=== PATIENT | female | born 1995 | race Two or more races ===

== ENCOUNTER 2020-09-18 20:50 | Emergency (ER) | payer BC, OTHER ==
[~2020-09-18] VITALS: Ht 165.1 cm; Wt 70.3 kg
[2020-09-18] MEDS ORDERED: AZIT250T PO (21:09)
[2020-09-18] MEDS ORDERED: HYDROCODONE/APAP 10-325 MG TABLET PO ONE (21:15)
[2020-09-18] MEDS ORDERED: AZITHROMYCIN 250 MG TABLET PO ONE (21:15)
[2020-09-18] MEDS ORDERED: AZITHROMYCIN 250 MG TABLET ONE (21:16)
[2020-09-18] MEDS ORDERED: HYDROCODONE/APAP 10-325 MG TABLET ONE (21:21)
== END 2020-09-18 22:20 | disposition home or self-care (01) ==
LOC: ER 20:50
DX: J02.9 Acute pharyngitis, unspecified (principal)
CPT/HCPCS: A4663; Q0144

== ENCOUNTER 2022-01-06 19:32 | Emergency (ER) | payer SELFPAY ==
[~2022-01-06] VITALS: Ht 165.1 cm; Wt 68.0 kg
[~2022-01-06 19:32] MED LIST: AZIT250T PO
--- NOTE | 2022-01-06 23:37 | NUR ---
PLACED IN ROOM 4B AT THIS TIME.
[2022-01-07] MEDS ORDERED: KETOROLAC TROMETHAMINE 30 MG INJ IVP ONE (00:15)
[2022-01-07] MEDS ORDERED: IV NS 1000 ML 1,000 ML IV ONE (00:15)
[2022-01-07] MEDS ORDERED: METOCLOPRAMIDE HCL 10 MG/2 ML VIAL IV ONE (00:15)
[2022-01-07] MEDS ORDERED: diphenhydrAMINE 50 MG/1 ML VIAL IV ONE (00:15)
[2022-01-07 00:20] LABS: HEMATOCRIT 39.4 % (31.2-41.9); MEAN CORPUSCULAR HEMOGLOBIN 33.3 uug (24.7-32.8); MEAN CORPUSCULAR VOLUME 96.8 fL (75.5-95.3); PLATELET COUNT (AUTO) 229 K/uL (179-408)
[2022-01-07] MEDS ORDERED: diphenhydrAMINE 50 MG/1 ML VIAL ONE (00:20)
[2022-01-07] MEDS ORDERED: KETOROLAC TROMETHAMINE 30 MG INJ ONE (00:20)
[2022-01-07] MEDS ORDERED: METOCLOPRAMIDE HCL 10 MG/2 ML VIAL ONE (00:20)
[2022-01-07 00:26] LABS: CREATININE 0.9 mg/dL (0.6-1.3); POTASSIUM 3.5 mmol/L (3.5-5.1)
[2022-01-07 00:32] LABS: BILIRUBIN,DIRECT 0.1 mg/dL (0.0-0.2); BILIRUBIN,TOTAL 0.5 mg/dL (0.2-1.0)
[2022-01-07 00:48] LABS: *MONOTEST NEGATIVE (NEGATIVE)
[2022-01-07] MEDS ORDERED: PROC10TA29 PO (01:15)
[2022-01-07] MEDS ORDERED: OXYC-128 PO (01:15)
[2022-01-07] MEDS ORDERED: SUMA100T16 PO (01:15)
[2022-01-07] MEDS ORDERED: NAPR-1164 PO (01:15)
--- NOTE | 2022-01-07 01:30 | NUR ---
Patient discharged to home in stable condition. Written and verbal after care instructions given. Patient verbalizes understanding of instructions. Stressed follow up or return to ER for worsening s/s. Patient is a/ox4, NAD noted. Patient is able to walk with steady gait
[2022-01-07 02:00] VITALS: BP 118/67
== END 2022-01-07 01:30 | disposition home or self-care (01) ==
LOC: ER 19:32
DX: B34.9 Viral infection, unspecified (principal); G43.909 Migraine, unspecified, not intractable, without status migrainosus; Z20.822 Contact with and (suspected) exposure to COVID-19
CPT/HCPCS: 87426; 86403 ×2; 99284; 96374; 96375; 96361; 80076; 80048; 82607; 83735; 85025; 86308; 36415; J1200; J1885; J2765; J7040; 87070